=== PATIENT | female | born 1990 | race African-American/Black ===

== ENCOUNTER 2017-08-10 13:42 | Emergency (ER) | payer MEDICAID ==
[~2017-08-10] VITALS: Ht 162.6 cm; Wt 79.4 kg
[2017-08-10 13:42] VITALS: BP_SYST 122
[2017-08-10] MEDS ORDERED: KETOROLAC TROMETHAMINE 60 MG/2 ML VIAL IM ONE ×2 (14:30→16:00)
[2017-08-10 16:15] VITALS: BP_SYST 128
== END 2017-08-10 16:15 | disposition home or self-care (01) ==
LOC: SED 13:42
DX: S30.0XXA Contusion of lower back and pelvis, initial encounter (principal); W01.0XXA Fall on same level from slipping, tripping and stumbling without subsequent striking against object, initial encounter; Y93.89 Activity, other specified; Y92.89 Other specified places as the place of occurrence of the external cause; Y99.8 Other external cause status
CPT/HCPCS: 72170; 72220; 81025; 96372; 99284; J1885